=== PATIENT | female | born 1950 | race Caucasian/White ===

== ENCOUNTER 2019-10-28 10:01 | Outpatient (CLI) | payer MEDICARE, SELFPAY | END 2019-10-28 10:02 | disposition home or self-care (01) | PROVIDERS: PCP Family Medicine; Visit Provider Obstetrics & Gynecology | DX: R10.2 Pelvic and perineal pain (principal) | CPT/HCPCS: 36415; 86850; 86900; 86901 ==

== ENCOUNTER 2019-10-29 00:03 | Outpatient (CLI) | payer MEDICARE, SELFPAY ==
[2019-10-29 17:33] LABS: SARS-CoV-2 RNA PCR Negative
== END 2019-10-29 00:04 | disposition home or self-care (01) ==
LOC: ANHCOVIDDT 00:03
PROVIDERS: Visit Provider Obstetrics & Gynecology
DX: Z01.818 Encounter for other preprocedural examination (principal); Z11.59 Encounter for screening for other viral diseases
CPT/HCPCS: 87635; C9803; U0003

== ENCOUNTER 2019-10-31 00:19 | Day surgery (SDC) | payer MEDICARE, SELFPAY ==
[2019-10-24 15:29] VITALS: BMI 25.7
--- NOTE | 2019-10-29 09:56 | PM.IMHP ---
H&P: HPI History of Present Illness Chief complaint: PELVIC PAIN Narrative: Lydia Sainz is a 68 year old female status post hysterectomy and bilateral sent is admitted for laparoscopy. She has a history pelvic adhesions she has pain discomfort and risks and benefits reviewed. She h Review of Systems Review of Systems: All systems reviewed & are unremarkable except as noted in HPI and below PMFSH Family History Family History Mother Family history of malignant neoplasm Patient's mother is Sibling Family history of malignant neoplasm Patient's sister is Social History Social History Smoking status: Never smoker Alcohol intake: never Meds Home Medications and Allergies Home Medications Medication Instructions Recorded Confirmed Type biotin 2,500 mcg PO DAILY 10/24/19 10/24/19 History levothyroxine 88 mcg PO DAILY 10/24/19 10/24/19 History Allergies Allergy/AdvReac Type Severity Reaction Status Date / Time No Known Allergies Allergy Unverified 10/24/19 15:16 Exam Const: General: no acute distress Eyes: General: appearance normal, both eyes and all related structures Neck: Neck: supple and no JVD Thyroid: thyroid normal Resp: Effort & Inspection: normal respiratory effort Auscultation: clear to auscultation bilaterally Cardio: Rate: regular rate Rhythm: regular rhythm GI: Inspection: non-distended GI Palp: Yes Soft to palpation, No Tenderness to palpation present (GI) and No Guarding due to palpation present (GI) Auscultation: normal bowel sounds : External Female Exam: normal external appearance Speculum Exam - Vagina: normal appearance of the vagina Speculum Exam - Cervix: Cervix absent Bimanual exam- vagina & uterus: normal palpation Bimanual Exam- Adnexa, other: no masses and tender Skin: General skin exam: no rashes or lesions noted Extrem: General: normal to inspection and no edema Psych: Mental Status: mental status grossly normal Affect: normal affect Assessment and Plan Additional Plan impression: Pelvic pain Plan: Diagnostic laparoscopy
[2019-10-31] VITALS (8 sets, daily range): BP systolic 135–169; BP diastolic 54–87; PULSE 52–94; RESP 13–30; TEMP 36.3; O2SAT 91–100
--- NOTE | 2019-10-31 06:21 | WPDHPUPDATE1 ---
History and Physical Update Update Date/Time: 10/31/19 06:21 History and Physical has been reviewed, including an updated exam of the patient. There are NO changes in the patient's condition. Risks, benefits, and alternatives have been discussed and questions answered. Patient agrees to proceed with procedure.
--- NOTE | 2019-10-31 07:57 | P.PNAN_ITS ---
Anes - Initial Pre Proc Eval Procedure: Operation Date: 10/31/19 09:30 Proposed Procedures p Diagnostic Laparoscopy - Vignesh Medrano MD Date/Time: 10/31/19 07:57 Surgeon: Vignesh Medrano MD Pre Op Diagnosis: PELVIC PAIN Patient Data Age: 68 Gender: F Height: 4 ft 10 in Weight: 56.3 kg Last Vital Signs Temp 97.3 F L 10/31/19 07:32 Pulse 63 10/31/19 07:32 Resp 16 10/31/19 07:32 BP 152/73 H 10/31/19 07:32 Pulse Ox 100 10/31/19 07:32 Allergies Allergy/AdvReac Type Severity Reaction Status Date / Time No Known Allergies Allergy Unverified 10/31/19 07:50 Home Medications Medication Instructions Recorded Confirmed Type biotin 2,500 mcg PO DAILY 10/24/19 10/31/19 History levothyroxine 88 mcg PO DAILY 10/24/19 10/31/19 History hydrocodone-acetaminophen [[place]] 1 tablet PO Q4H PRN #20 tablet 10/31/19 Rx Patient hx anesthesia problems: none Family hx anesthesia problems: none [facility] Past Medical History Medical History (Updated 10/31/19 @ 07:57 by Alvaro Vides MD) Hypothyroid Family History Family History Mother Family history of malignant neoplasm Patient's mother is Sibling Family history of malignant neoplasm Patient's sister is Social History Social History Smoking status: Never smoker Alcohol intake: never Anes - Eval Final PreProcedure Day of Procedure 10/31/19 07:57 Patient weight: normal Heart: regular rate and rhythm Lungs: clear to auscultation Airway: Mallampati scale class II Neurological: alert and oriented Last oral intake: >/= 8 hours ASA classification: II Emergent: no Anesthetic plan: proceed Anesthesia type and monitoring: general ETT and standard monitoring Informed Consent: The patient's anesthetic plan and its attendant risks and benefits were discussed with the patient/family/POA. Questions were solicited and answers provided to the satisfaction of the patient/family/POA.
[2019-10-31] MEDS: LACTATED RINGERS 1,000 ML 30 ML IV CONT ×2 (08:05→09:59)
--- NOTE | 2019-10-31 08:50 | SUR.PREOP ---
0850- INFORMED PT HAS BEEN TRANSPORTED TO OR.
--- NOTE | 2019-10-31 09:21 | P.OP_ITS ---
Procedure Note - Detailed Date of procedure: 10/31/19 Pre-op diagnosis: PELVIC PAIN Surgeon: Vignesh Medrano MD for postop diagnosis: Pelvic plain/ pelvic adhesions Anesthesia: General endotracheal Procedure: Laparoscopic lysis of adhesions Complications: Findings: Absent uterus ovaries and tubes. Multiple areas of adhesions. Description procedure: The patient was prepped and draped in the normal sterile fashion placed in the dorsal lithotomy position. Under excellent general endotracheal anesthesia weighted speculum placed in posterior fornix of vagina. Sponge stick was placed in the vagina drained of clear urine. The weighted speculum was removed and gloves were changed. A supraumbilical incision was made and the Veress needle passed in the abdomen. Abdomen was filled with CO2 gas [id number]. The 5mm trocar was advanced under direct visualization assuring no injury. Patient was placed in Trendelenburg and a left lateral quadrant incision was made due to the adhesions which were anterior to the abdominal wall. The 5mm trocar was advanced under direct visualization assuring no injury. Using sharp dissection the omentum which was attached to the anterior abdominal wall was serially cauterized cut and 9 relieved from the adhesions to the anterior and abdominal wall. Multiple ad hesions were seen on the left with a: Attached to the left lateral sidewall. Sharp dissection was used until it was cleared irrigation was undertaken until clear and photo documentation was undertaken. Interceed was placed over the raw surface areas to attempt to avoid future adhesions. Blood loss was estimated at5cc lower site removed. The gas removed from the abdomen the upper site removed. The incisions closed with 4 O Monocryl and glue. The patient was awakened and went to recovery in satisfactory condition. All sponge, needle, instrument counts were correct. There were no immediate complications
== END 2019-10-31 11:28 | disposition home or self-care (01) ==
PROVIDERS: PCP Family Medicine; Visit Provider Obstetrics & Gynecology
PROC: (CPT 49320; principal; 2019-10-31 09:30)
DX: R10.2 Pelvic and perineal pain (principal); N73.6 Female pelvic peritoneal adhesions (postinfective)
CPT/HCPCS: 58660; 36415; 86850; 86900; 86901; 87635; A9270; C9803; J0131; J1100; J2250; J2405; J2704; J2710; J3010; J7030; J7120; U0003

== ENCOUNTER 2022-05-01 12:16 | Outpatient (CLI) | payer MEDICARE, SELFPAY ==
--- NOTE | ~2022-05-01 | US_ITS ---
Pelvic ultrasound. Clinical History: Pelvic pain, history of hysterectomy and bilateral oophorectomy Technique: Realtime transvaginal scanning of the pelvis was performed. Findings: The uterus and ovaries are absent, compatible prior resection. No mass lesion or fluid maura ection seen in the pelvis. No free fluid identified. Impression: Status post hysterectomy and bilateral oophorectomy. No mass lesion, fluid collection, or free fluid seen in the pelvis. Reviewed, dictated and finalized at location [] [facility] [employer] Impression: Status post hysterectomy and bilateral oophorectomy. No mass lesion, fluid maura ection, or free fluid seen in the pelvis.
== END 2022-05-01 12:17 | disposition home or self-care (01) ==
PROVIDERS: PCP Family Medicine; Visit Provider Obstetrics & Gynecology
DX: R10.2 Pelvic and perineal pain (principal); Z90.710 Acquired absence of both cervix and uterus; Z90.722 Acquired absence of ovaries, bilateral
CPT/HCPCS: 76830; 76856

== ENCOUNTER 2022-05-09 08:40 | Outpatient (CLI) | payer MEDICARE, SELFPAY | END 2022-05-09 08:41 | disposition home or self-care (01) | PROVIDERS: PCP Family Medicine; Visit Provider Obstetrics & Gynecology | DX: R10.2 Pelvic and perineal pain (principal) | CPT/HCPCS: 36415; 86850; 86900; 86901 ==

== ENCOUNTER 2022-05-19 01:21 | Day surgery (SDC) | payer MEDICARE, SELFPAY ==
[2022-05-04 10:40] VITALS: BMI 24.2
--- NOTE | 2022-05-04 10:45 | PC.NURSE ---
Addendum entered by Kaitlyn Dobbs RN 05/04/22 10:58: MASK REQUIRED Original Note: Report to the Outpatient Waiting Room, entrance under the green pavilion located off [facility], at time 6:00 on date 05/19/22. Planned Procedure Time: 7:30. Time changes happen often and if your time is changed the preop area will call you the afternoon before. - You and your visitor will be asked to self-screen and do not enter if you have any COVID symptoms. - Only one visitor is requested with a max of two and NO children visitors are allowed at this time. - The patient visitor may be requested to leave or wait in car when not with patient due to distancing restrictions. - A mask is optional within the hospital. Patients may have clear liquids (water, carbonated beverages, clear teas, apple juice) until 3 hours prior to surgery (4:30) with a maximum of 20 ounces. - No food from midnight until time of surgery Take the following medications with a SIP of water the morning of surgery: LEVOTHYROXINE Medications to discontinue per physician: BIOTIN Date to take last dose: 05/15/22 Please no make-up, nail indian, hairspray, perfume, deodorant, or body powder the day of surgery. No jewelry (including any body piercings) or valuables the day of surgery, leave them at home. Please take a shower or bath the night before, or the morning of, surgery with an antibacterial soap. Wear comfortable, loose fitting clothing. - Jewelry must be removed prior to entering the operating room. Rings and piercings that are not removed may be cut off. - The hospital will not accept responsibility for valuables. - Please leave all valuables, including medications, at home the day of surgery. If you are going home after surgery, a licensed log truck driver must drive you home. - NO public transportation without another adult if you receive anesthesia. - We recommend that an adult stay with you for 24 hours following discharge. - We also recommend that you do not drive, make important decision, drink alcoholic beverages, or take any drugs that were not prescribed by your health care provider for at least 24 hours after your discharge time. Follow any additional instructions given to you from your surgeon. If you or anyone in your household have experienced Covid symptoms in the past week, please notify your surgeon or the nurse liaison at the phone number below for possible testing. Telephone instructions given to PT - ANGELIQUE KOWALSKI and asked if any additional questions and then verbalized understanding. Patient advised to call surgeon office or pre surgery nurse liaison [phone] if any additional questions.
--- NOTE | 2022-05-18 07:45 | PM.IMHP ---
H&P: HPI History of Present Illness Date/Time: 05/18/22 07:45 Chief Complaint: pelvic pain Narrative: 71-year-old female with pelvic pain dyspareunia she has a history of hysterectomy and BSO with recurrent adhesions. Ultrasound was negative. She continues to have pain and discomfort in laparoscopic lysis of adhesions be undertaken. She understands this may worsen things. Risks and benefits reviewed including not exclusive of , aspiration pneumonia, bleeding, transfusion, perforation injury to bowel, bladder, ureters, or other internal organs the need for open laparotomy. She received the ACOG handout entitled laparoscopy. She had all questions answered. She asked to proceed PMFSH Past Medical History Medical History Hypothyroid Family History Family History Mother Family history of malignant neoplasm Patient's mother is Sibling Family history of malignant neoplasm Patient's sister is Social History Social History Smoking status: Never smoker Alcohol intake: never Substance use: never Substance use type: does not use Spiritual care concerns: No Meds Home Medications and Allergies Home Medications Medication Instructions Recorded Confirmed Type biotin 2,500 mcg capsule 2,500 mcg PO DAILY 10/24/19 05/04/22 History levothyroxine 88 mcg tablet 88 mcg PO DAILY 10/24/19 05/04/22 History Allergies Allergy/AdvReac Type Severity Reaction Status Date / Time No Known Allergies Allergy Unverified 10/31/19 07:50 Exam Const: General: cooperative, healthy appearing and comfortable Nutritional Appearance: average body habitus Orientation/consciousness: oriented to person, oriented to place and oriented to time HENMT: Head: normal to inspection Resp: Effort & Inspection: normal respiratory effort Cardio: Rate: regular rate Rhythm: regular rhythm Heart sounds: S1 normal heart sound present and S2 normal heart sound present GI: Inspection: normal to inspection : External Female Exam: normal external appearance Speculum Exam - Vagina: normal appearance of the vagina Speculum Exam - Cervix: Cervix absent Bimanual exam- vagina & uterus: uterus absent Bimanual Exam- Adnexa, other: tender bilaterally Assessment and Plan Assessment and plan (1) Pelvic pain: Code(s): R10.2 - Pelvic and perineal pain Status: Acute Plan laparoscopy with expected lysis of adhesions
--- NOTE | 2022-05-18 13:23 | P.PNAN_ITS ---
Anes - Initial Pre Proc Eval Procedure: Operation Date: 05/19/22 07:30 Proposed Procedures p Laparoscopic Excision of Pelvic Adhesions - Vignesh Gipson MD Date/Time: 05/18/22 13:23 Surgeon: Vignesh Gipson MD Pre Op Diagnosis: pelvic pain Patient Data Age: 71 Gender: F Height: 1.47 m Weight: 52.62 kg Allergies Allergy/AdvReac Type Severity Reaction Status Date / Time No Known Allergies Allergy Unverified 05/19/22 06:15 Home Medications Medication Instructions Recorded Confirmed Type biotin 2,500 mcg capsule 2,500 mcg PO DAILY 10/24/19 05/19/22 History levothyroxine 88 mcg tablet 88 mcg PO DAILY 10/24/19 05/19/22 History hydrocodone 5 mg-acetaminophen 325 1 tablet PO Q4H PRN pain #20 tabs 05/19/22 Rx mg tablet Patient hx anesthesia problems: none Family hx anesthesia problems: none Results Review: All pre-operative results and documents have been reviewed as part of the pre- operative evaluation. [facility] Past Medical History Medical History Hypothyroid Family History Family History Mother Family history of malignant neoplasm Patient's mother is Sibling Family history of malignant neoplasm Patient's sister is Social History Social History Smoking status: Never smoker Alcohol intake: never Substance use: never Substance use type: does not use Living arrangements: with family Spiritual care concerns: No Anes - Eval Final PreProcedure Day of Procedure 05/18/22 13:23 Patient weight: normal Heart: regular rate and rhythm Lungs: clear to auscultation Airway: Mallampati scale class II Neurological: alert and oriented Last oral intake: >/= 8 hours ASA classification: II Emergent: no Anesthetic plan: proceed Anesthesia type and monitoring: general ETT and standard monitoring Results Review: All pre-operative results and documents have been reviewed as part of the pre- operative evaluation. Informed Consent: The patient's anesthetic plan and its attendant risks and benefits were discussed with the patient/family/POA. Questions were solicited and answers provided to the satisfaction of the patient/family/POA.
[2022-05-19] VITALS (8 sets, daily range): BP systolic 135–168; BP diastolic 56–79; PULSE 54–86; RESP 12–22; TEMP 36.3–36.7; O2SAT 95–100
[2022-05-19] MEDS: ACETAMINOPHEN 500 MG TABLET 1000 MG PO (06:15)
[2022-05-19] MEDS: LACTATED RINGERS 1,000 ML 30 ML IV CONT ×2 (06:37→08:20)
[2022-05-19] MEDS: KETOROLAC 15 MG/ML VIAL (*BKC) IV PUSH (06:39)
--- NOTE | 2022-05-19 06:51 | WPDHPUPDATE1 ---
History and Physical Update Update Date/Time: 05/19/22 06:51 History and Physical has been reviewed, including an updated exam of the patient. There are NO changes in the patient's condition. Risks, benefits, and alternatives have been discussed and questions answered. Patient agrees to proceed with procedure.
--- NOTE | 2022-05-19 08:07 | W.PM.PROC2 ---
Procedure Note - Detailed Date of Procedure 05/19/22 Pre-op Diagnosis pelvic pain Post-op Diagnosis Other (Pelvic adhesions) Procedure Performed laparoscopic lysis adhesions Surgeon Vignesh Gipson MD Anesthesia General Indications size 71-year-old female numerous previous surgical suspected adhesions severe pelvic pain Findings absent uterus ovaries tubes multiple adhesions to the anterior abdominal as well as the vaginal cuff. Colon was adherent to the. Uterus ovaries and tubes were surgically absent Description of Procedure patient was prepped draped in the normal sterile fashion placed in the dorsal lithotomy position. Under excellent general trach anesthesia sponge stick was placed in clear urine. Sponge stick was placed in the vagina and the gloves were changed. A supraumbilical incision made the Veress needle passed in the abdomen. Abdomen filled with CO2 gas 15 was mercury. The 5mm trocar advanced under direct visualization assuring no injury. Patient placed in Trendelenburg and a left lower quadrant incision made the 5mm trocar advanced under direct visualization assuring no injury. Multiple adhesions were seen anteriorly and these were sharply dissected using Endo Rlel and electrocautery. Irrigation was undertaken to clear. The colon was markedly adherent to the vaginal cuff as well as the left lateral sidewall sharp dissection was undertaken with Endo Rell and this was cleared vigorous irrigation undertaken to allow was clear. No other abnormalities were seen the lower site removed. Gas removed from the abdomen the upper site removed and incisions closed with 4 Monocryl and glue. Instruments removed from the vagina and the patient went to recovery in satisfactory condition. All sponge, needle, instrument counts were correct. There were no immediate complications Estimated Blood Loss 5 Drains No Packing No Pathology None sent Complications No immediate complications Condition Stable Disposition PACU
== END 2022-05-19 10:00 | disposition home or self-care (01) ==
PROVIDERS: PCP Family Medicine; Visit Provider Obstetrics & Gynecology
PROC: (CPT 49320; principal; 2022-05-19 07:30)
DX: N73.6 Female pelvic peritoneal adhesions (postinfective) (principal); R10.2 Pelvic and perineal pain; N94.10 Unspecified dyspareunia; E03.9 Hypothyroidism, unspecified
CPT/HCPCS: 44180; A9270; J1100; J1885; J2250; J2704; J2710; J3010; J7030; J7120

== ENCOUNTER 2023-11-14 08:01 | Outpatient (CLI) | payer MEDICARE, SELFPAY ==
--- NOTE | 2023-11-14 08:30 | ECG_ITS ---
Test Date: 2023-11-14 08:17:12 Measurements Intervals [place] Rate: 62 P: 4 CA: 194 QRS: 74 QRSD: 73 T: 10 QT: 380 QTc: 387 Interpretive Statements SINUS RHYTHM No previous ECG available for comparison Electronically Signed On 11-14-2023 11:54:23 CDT by Betsy Mejias M.D.
== END 2023-11-14 08:02 | disposition home or self-care (01) ==
LOC: ANHSURGERY 08:07
PROVIDERS: PCP Family Medicine; Visit Provider Obstetrics & Gynecology
DX: R10.2 Pelvic and perineal pain (principal); Z01.818 Encounter for other preprocedural examination; E78.00 Pure hypercholesterolemia, unspecified
CPT/HCPCS: 36415; 86850; 86900; 86901; 93005

== ENCOUNTER 2023-11-16 00:23 | Day surgery (SDC) | payer MEDICARE, SELFPAY ==
[2023-11-12 14:20] VITALS: BMI 23.9
--- NOTE | 2023-11-12 14:50 | PC.NURSE ---
Addendum entered by Yuki Naranjo RN 11/12/23 14:53: PT TO HOLD ASPIRIN PER DR CRUZ, SHE RELAYS UNDERSTANDING. Original Note: Report to the Outpatient Waiting Room, entrance under the green pavilion located off [facility], at time __6:30AM on date __11/16/23 . Planned Procedure Time: __8:30AM . Time changes happen often and if your time is changed the preop area will call you the afternoon before. - You and your visitor will be asked to self-screen and do not enter if you have any COVID symptoms. - A mask is optional within the hospital at this time. Patients may have clear liquids (water, carbonated beverages, clear teas, apple juice) until 3 hours prior to surgery with a maximum of 20 ounces. - No food from midnight until time of surgery. Take the following medications with a SIP of water the morning of surgery: __LEVOTHYROXINE DO NOT STOP ANY OF YOUR OTHER PRESCRIPTION MEDICATIONS PRIOR TO SURGERY ?EXCEPT THE FOLLOWING Medications to discontinue per physician ____HOLD ALL VITAMINS/SUPPLEMENTS 3 DAYS PRE-OP PER ANESTHESIA Date to take last dose___11/12/23 Please no make-up, nail luxembourgish, hairspray, perfume, deodorant, or body powder the day of surgery. No jewelry (including any body piercings) or valuables the day of surgery, leave them at home. Please take a shower or bath the night before, or the morning of, surgery with an antibacterial soap. Wear comfortable, loose fitting clothing. - Jewelry must be removed prior to entering the operating room. Rings and piercings that are not removed may be cut off. - The hospital will not accept responsibility for valuables. - Please leave all valuables, including medications, at home the day of surgery. If you are going home after surgery, a licensed truck driver's offsider must drive you home. - NO public transportation without another adult if you receive anesthesia. - We recommend that an adult stay with you for 24 hours following discharge. - We also recommend that you do not drive, make important decision, drink alcoholic beverages, or take any drugs that were not prescribed by your health care provider for at least 24 hours after your discharge time. Follow any additional instructions given to you from your surgeon. If you or anyone in your household have experienced Covid symptoms in the past week, please notify your surgeon or the nurse liaison at the phone number below for possible testing. Telephone instructions given to ___PATIENT and asked if any additional questions and then verbalized understanding. Patient advised to call surgeon office or pre surgery nurse liaison [phone] if any additional questions.
--- NOTE | 2023-11-15 06:39 | PM.IMHP ---
H&P: HPI History of Present Illness Date/Time: 11/15/23 06:39 Chief Complaint: pelvic pain Narrative: 73-year-old female with a history of severe pelvic adhesions admitted for laparoscopy and lysis of adhesions. Ultrasound findings were negative. She has had he adhesions were for in the past and benefited from lysis of adhesions. Risks and benefits of this procedure reviewed including not exclusive of , aspiration pneumonia, bleeding, transfusion, perforation injury to bowel, bladder, ureters, or other internal organs with the need for open laparotomy. She received the ACOG handout entitled laparoscopy. She had all questions answered and asked to proceed PMFSH Past Medical History Medical History Hypothyroid Family History Family History Mother Family history of malignant neoplasm Patient's mother is Sibling Family history of malignant neoplasm Patient's sister is Social History Social History Smoking status: Never smoker Alcohol intake: never Substance use: never Substance use type: does not use Living arrangements: with family Additional living arrangements comments: HUSB Gender identity (if verbalized by the patient): Female Sexual Orientation (if Verbalized by the Patient): Straight or Heterosexual Spiritual care concerns: No Meds Home Medications and Allergies Home Medications Medication Instructions Recorded Confirmed Type biotin 2,500 mcg capsule 2,500 mcg PO DAILY 10/24/19 11/12/23 History levothyroxine 88 mcg tablet 88 mcg PO QAM 10/24/19 11/12/23 History aspirin 81 mg tablet 81 mg PO DAILY 11/12/23 11/12/23 History atorvastatin 40 mg tablet 40 mg PO QAM 11/12/23 11/12/23 History Allergies Allergy/AdvReac Type Severity Reaction Status Date / Time No Known Allergies Allergy Unverified 11/12/23 14:15 Exam Const: General: cooperative, healthy appearing, comfortable and thin Orientation/consciousness: oriented to person, oriented to place and oriented to time HENMT: Head: normal to inspection Resp: Effort & Inspection: normal respiratory effort Cardio: Rate: regular rate Rhythm: regular rhythm Heart sounds: S1 normal heart sound present and S2 normal heart sound present GI: Inspection: normal to inspection : External Female Exam: normal external appearance Speculum Exam - Vagina: normal appearance of the vagina Speculum Exam - Cervix: Cervix absent Bimanual exam- vagina & uterus: uterus absent Bimanual Exam- Adnexa, other: tender bilaterally Assessment and Plan Assessment and plan (1) Pelvic pain: Code(s): R10.2 - Pelvic and perineal pain Status: Acute Assessment and Plan: laparoscopy with lysis of adhesions
--- NOTE | 2023-11-16 04:37 | WPDHPUPDATE1 ---
History and Physical Update Update Date/Time: 11/16/23 04:37 History and Physical has been reviewed, including an updated exam of the patient. There are NO changes in the patient's condition. Risks, benefits, and alternatives have been discussed and questions answered. Patient agrees to proceed with procedure.
[2023-11-16 06:20] VITALS: BP 146/72; PULSE 59; RESP 16; TEMP 36.8; O2SAT 97
[2023-11-16] MEDS: KETOROLAC 15 MG/ML VIAL (*BKC) IV PUSH (07:30)
[2023-11-16 07:54] VITALS: BMI 24.0
--- NOTE | 2023-11-16 08:04 | WPDANESEPPF ---
Anes - Initial Pre Proc Eval Procedure: Operation Date: 11/16/23 08:30 Proposed Procedures p Laparoscopy with Lysis of Adhesions - Vignesh Gipson MD Date/Time: 11/16/23 08:04 Surgeon: Vignesh Gipson MD Pre Op Diagnosis: Pelvic Pain, Pelvic Adhesions Patient Data Age: 73 Gender: F Height: 1.47 m Weight: 52.2 kg Last Vital Signs Temp 36.8 C 11/16/23 06:20 Pulse 59 L 11/16/23 06:20 Resp 16 11/16/23 06:20 BP 146/72 H 11/16/23 06:20 Pulse Ox 97 11/16/23 06:20 O2 Del Method Room Air 11/16/23 06:20 Allergies Allergy/AdvReac Type Severity Reaction Status Date / Time No Known Allergies Allergy Verified 11/16/23 07:52 Home Medications Medication Instructions Recorded Confirmed Type biotin 2,500 mcg capsule 2,500 mcg PO DAILY 10/24/19 11/12/23 History levothyroxine 88 mcg tablet 88 mcg PO QAM 10/24/19 11/12/23 History aspirin 81 mg tablet 81 mg PO DAILY 11/12/23 11/12/23 History atorvastatin 40 mg tablet 40 mg PO QAM 11/12/23 11/12/23 History hydrocodone 5 mg-acetaminophen 325 1 tablet PO Q4H PRN pain #20 tabs 11/16/23 Rx mg tablet Patient hx anesthesia problems: none Family hx anesthesia problems: none Results Review: All pre-operative results and documents have been reviewed as part of the pre-operative evaluation. [facility] Past Medical History Medical History Hypothyroid Family History Family History Mother Family history of malignant neoplasm Patient's mother is Sibling Family history of malignant neoplasm Patient's sister is Social History Social History Smoking status: Never smoker Alcohol intake: never Substance use: never Substance use type: does not use Living arrangements: with family Additional living arrangements comments: HUSB Gender identity (if verbalized by the patient): Female Sexual Orientation (if Verbalized by the Patient): Straight or Heterosexual Spiritual care concerns: No Anes - Eval Final PreProcedure Day of Procedure 11/16/23 08:04 Patient weight: normal Heart: regular rate and rhythm Lungs: clear to auscultation Airway: Mallampati scale class II Neurological: alert and oriented Last oral intake: >/= 8 hours ASA classification: III Emergent: no Anesthetic plan: proceed Anesthesia type and monitoring: general ETT and standard monitoring Results Review: All pre-operative results and documents have been reviewed as part of the pre-operative evaluation. Informed Consent: The patient's anesthetic plan and its attendant risks and benefits were discussed with the patient/family/POA. Questions were solicited and answers provided to the satisfaction of the patient/family/POA.
[2023-11-16 09:05] VITALS: BP 111/53; PULSE 52; RESP 12; TEMP 36.5; O2SAT 100
[2023-11-16] MEDS: LACTATED RINGERS 1,000 ML 30 ML IV CONT ×2 (09:05)
--- NOTE | 2023-11-16 09:05 | W.PM.PROC2 ---
Procedure Note - Detailed Date of Procedure 11/16/23 Pre-op Diagnosis Pelvic Pain, Pelvic Adhesions Post-op Diagnosis Same Procedure Performed Laparoscopic lysis of adhesions Surgeon Vignesh Gipson MD Anesthesia General Indications this is a 73-year-old female with a history of adhesions Findings as uterus ovaries tubes. Fair amount of adhesions from colon to the left lateral were also adhesions to the Description of Procedure patient was prepped draped in normal sterile fashion placed in dorsal lithotomy position. Under excellent general trach anesthesia a sponge stick was placed in vagina bladder drained clear urine. Weighted speculum was gloves were changed. A supraumbilical incision made the Veress needle passed in the abdomen. Abdomen filled with CO2 gas to 15mm. The 5mm trocar advanced under direct visualization assuring no injury. Patient placed in Trendelenburg and a suprapubic incision made. The 5mm trocar advanced under direct visualization multiple adhesions were seen and using scissors and sharp dissection these were sharply dissected cleared irrigation was undertaken until clear and the colon was noted be none adherent to the lateral sidewall after the finished with this the right side had a small amount of adhesions these were sharply dissected away the sponge stick was placed vagina was completely mobile irrigation was undertaken to clear the lower sites. The gas abdomen. Upper sized incisions closed with 4 patient was awakened went to recovery in satisfactory condition. All sponge, needle, instrument counts were correct. There were immediate complications Estimated Blood Loss 5 Drains No Packing No Pathology None sent Complications No immediate complications Condition Stable Disposition PACU
[2023-11-16 09:15] VITALS: BP 109/55; PULSE 52; RESP 12; O2SAT 100
[2023-11-16 09:30] VITALS: BP 155/81; PULSE 71; RESP 16; O2SAT 100
[2023-11-16 09:46] VITALS: BP 177/66; PULSE 58; RESP 16
[2023-11-16 10:15] VITALS: BP 163/66; PULSE 51; RESP 16
== END 2023-11-16 10:34 | disposition home or self-care (01) ==
PROVIDERS: PCP Family Medicine; Visit Provider Obstetrics & Gynecology
PROC: (CPT 49320; principal; 2023-11-16 08:30)
DX: N73.6 Female pelvic peritoneal adhesions (postinfective) (principal); R10.2 Pelvic and perineal pain; E03.9 Hypothyroidism, unspecified
CPT/HCPCS: 58660; 36415; 86850; 86900; 86901; 93005; J1100; J1170; J1885; J2405; J2704; J7120

== ENCOUNTER 2025-01-13 08:49 | Outpatient (CLI) | payer MEDICARE, SELFPAY ==
--- OUTSIDE RECORDS SUMMARY | 2025-01-13 09:03 | XMS_ITS | Patient Health Record ---
Author Organization [facility] Address [address] [place], [place] [id number] Care Team Providers Care Survey Coordinator Name Role Phone NORA Magana Unavailable Martin Martinez Unavailable Unavailable Reason For Referral No Information Plan Of Treatment No Information Insurance Providers Payer Name Payer Address Payer Phone Subscriber Number Group Number Insured Name Patient Relationship to Insured Coverage Start Date Coverage End Date Aetna [address] [place] [phone] [id number] MYRNA KOWALSKI Self - patient is the insured
--- OUTSIDE RECORDS SUMMARY | 2025-01-13 09:03 | XMS_ITS | Clinical Summary ---
Author Organization [facility] Address [address] [place] [id number] Care Team Providers Care Associate Professor Of Biostatistics Name Role Phone Martin Martinez MD Primary Care Provider [phone] Allergies No known active allergies Medications No known medications Active Problems Problem Noted Date Diagnosed Date Trigger finger of left thumb 05/09/2024 Left hand pain 05/09/2024 Adhesive capsulitis of shoulder 10/07/2012 Medial epicondylitis of elbow 10/07/2012 Arthralgia of shoulder 07/19/2010 Surgical History Surgery Date Site/Laterality Comments OTHER SURGICAL HISTORY many, can't remember dates Medical History Medical History Date Comments Thyroid disease Family History Medical History Relation Name Comments Cancer Other sister 2 Cancer Sister Relation Name Status Comments Other sister 2 Alive Sister Social History Tobacco Use Types Packs/Day Years Used Date Smoking Tobacco: Never Smokeless Tobacco: Never Alcohol Use Standard Drinks/Week Comments Never 0 (1 standard drink = 0.6 oz pur e alcohol) AUDIT-C Answer Date Recorded Frequency of Alcohol Consumption Never 06/05/2019 Average Number of Drinks Not on file 020 Frequency of Binge Drinking Not on file 05/21 Comments Unknown Sex and Gender Information Value Date Recorded Sex Assigned at Not on file Legal Sex Female 3:14 AM TRIAL JUSTICE Gender Identity Not on file Sexual Orientation Not on file Occupation Industry Job Start Date Job End Date retired Not on file Not on file Not on file Obstetrics History Last Filed Vital Signs Vital Sign Reading Time Taken Comments Blood Pressure - - Pulse - - Temperature - - Respiratory Rate - - Oxygen Saturation - - Inhaled Oxygen Concentration - - Weight 53.1 kg (117 lb) 06/05/2019 3:21 PM TRIAL JUSTICE Height 147.3 cm (4' 10) 06/05/2019 3:21 PM TRIAL JUSTICE Body Mass Index 24.45 06/05/2019 3:21 PM TRIAL JUSTICE Plan of Treatment Health Maintenance Due Date Last Done Comments Colon Cancer Screening-Colonoscopy 1950 Depression Screening 1952 Fall Risk Assessment 1950 Hepatitis C Screening 1950 Osteoporosis Screening-Bone Density Scan 1950 DTaP/Tdap/Td Vaccine (1 - Tdap) 11/08/1963 Hepatitis B Screening 1970 Pneumococcal vaccine 65+ (1 of 1 - PCV) 2002 Zoster Vaccine (1 of 2) 2002 Breast Cancer Screening-Mammogram 09/23/2013 013 Well Visit 65+ 2017 Influenza Vaccine (#1) 2025 Insurance [facility] MEDICARE ADVANTAGE [facility] MEDICARE [facility] MEDICARE Address: [address] [place] [address] UHC MEDICARE ADVANTAGE [facility] MEDICARE Care Teams Associate Professor Of Biostatistics Relationship Specialty Start Date End Date Martin Martinez MD [address] [address] PCP - General Family Medicine 05/15/19
--- NOTE | 2025-01-13 09:06 | ECG_ITS ---
Test Date: 2025-01-13 09:15:27 Measurements Intervals [place] Rate: 57 P: 41 AR: 179 QRS: -23 QRSD: 78 T: 45 QT: 411 QTc: 403 Interpretive Statements SINUS BRADYCARDIA POSSIBLE ANTERIOR MYOCARDIAL INFARCTION CONSIDER INFERIOR INFARCT, AGE INDETERMINATE BASELINE ARTIFACT- I, II, III, AVR, AVL, AVF, V1-V6 ABNORMAL ECG Compared to ECG 11/14/2023 08:17:12 NO SIGNIFICANT CHANGE Electronically Signed On 01-13-2025 09:20:02 CDT by Ministerio Hoff D.O.
== END 2025-01-13 08:50 | disposition home or self-care (01) ==
PROVIDERS: PCP Family Medicine; Visit Provider Obstetrics & Gynecology
DX: Z01.818 Encounter for other preprocedural examination (principal); E78.5 Hyperlipidemia, unspecified; R10.2 Pelvic and perineal pain; N80.9 Endometriosis, unspecified
CPT/HCPCS: 36415; 86850; 86900; 86901; 93005

== ENCOUNTER 2025-01-23 00:28 | Day surgery (SDC) | payer MEDICARE, SELFPAY ==
[2025-01-12 15:03] VITALS: BMI 23.9
--- NOTE | 2025-01-12 15:13 | PC.NURSE ---
Report to the Outpatient Waiting Room, entrance under the green pavilion located off [facility], at time _0730am on date __01/23/25 . Planned Procedure Time: __0930am .? Time changes happen often and if your time is changed the preop area will call you the afternoon before. - You and your visitor will be asked to self-screen and do not enter if you have any COVID symptoms. Please call surgeon if you need to reschedule. - A mask is optional within the hospital at this time. Patients may have clear liquids (water, carbonated beverages, clear teas, apple juice) until 3 hours prior to surgery with a maximum of 20 ounces. - No food from midnight until time of surgery and no smoking, or chewing tobacco (or any form of nicotine). No chewing gum, candy or mints.( 0630am) Take only the following medications with a SIP of water on the morning of surgery: Levothyroxine DO NOT STOP ANY OF YOUR OTHER PRESCRIPTION MEDICATIONS PRIOR TO SURGERY EXCEPT THE FOLLOWING Hold all vitamins and supplements for 3 days per anesthesiologist. Date of Last dose is 01/19/25 Medications to discontinue per physician HOLD Baby Aspirin x [address] Alonso Gipson Date to take last dose____01/19/25 Please no make-up, nail palauan, hairspray, perfume, deodorant, or body powder the day of surgery.? No jewelry (including any body piercings) or valuables the day of surgery, leave them at home.? Please take a shower or bath the night before, or the morning of, surgery with an antibacterial soap.? Wear comfortable, loose fitting clothing.? - Jewelry must be removed prior to entering the operating room.? Rings and piercings that are not removed may be cut off. - The hospital will not accept responsibility for valuables.? - Please leave all valuables, including medications, at home the day of surgery. If you are going home after surgery, a licensed chuck wagon driver must drive you home.? - NO public transportation without another adult if you receive anesthesia. - We recommend that an adult stay with you for 24 hours following discharge. - We also recommend that you do not drive, make important decision, drink alcoholic beverages, or take any drugs that were not prescribed by your health care provider for at least 24 hours after your discharge time. Follow any additional instructions given to you from your surgeon. Telephone instructions given to __Patient and asked if any additional questions and then verbalized understanding. Patient advised to call surgeon office or pre surgery nurse liaison [phone] if any additional questions.
--- NOTE | 2025-01-21 12:47 | PM.IMHP ---
H&P: HPI History of Present Illness Date/Time: 01/21/25 12:47 Chief Complaint: Abdominal pain status post hysterectomy bilateral salpingo-oophorectomy Narrative: This is a pleasant 74-year-old laparoscopic lysis of adhesions. She has no history adhesions sent severe pelvic pain. She has imaging with negative findings as tried pelvic floor therapy she continues have severe pelvic pain discomfort risks and benefits reviewed including not exclusive of aspiration pneumonia bleeding, transfusion, perforation injury to bowel, bladder, ureters, or other internal organs with need for open laparotomy. She received the [facility] handout entitled laparoscopy. She had all questions answered asked to proceed Review of Systems Review of Systems: All systems reviewed & are unremarkable except as noted in HPI and below PMFSH Past Medical History Medical History Hypothyroid Family History Family History Mother Family history of malignant neoplasm Patient's mother is Sibling Family history of malignant neoplasm Patient's sister is Social History Social History Smoking status: Never smoker Second hand tobacco smoke exposure: No Alcohol intake: never Substance use: never Substance use type: does not use Living arrangements: with family Additional living arrangements comments: Gender identity (if verbalized by the patient): Female Sexual Orientation (if Verbalized by the Patient): Straight or Heterosexual Spiritual care concerns: No Meds Home Medications and Allergies Home Medications ?Medication ?Instructions ?Recorded ?Confirmed ?Type biotin 2,500 mcg capsule 2,500 mcg PO DAILY 10/24/19 01/12/25 History levothyroxine 88 mcg tablet 88 mcg PO QAM 10/24/19 01/12/25 History aspirin 81 mg tablet 81 mg PO DAILY 11/12/23 01/12/25 History atorvastatin 40 mg tablet 40 mg PO QAM 11/12/23 01/12/25 History vitamin E 268 mg (400 unit) capsule 268 mg PO DAILY 01/12/25 01/12/25 History Allergies Allergy/AdvReac Type Severity Reaction Status Date / Time No Known Allergies Allergy Verified 01/12/25 14:59 Exam Const: General: cooperative, healthy appearing and comfortable Nutritional Appearance: average body habitus Orientation/consciousness: oriented to person, oriented to place and oriented to time HENMT: Head: normal to inspection Resp: Effort & Inspection: normal respiratory effort Cardio: Rate: regular rate Rhythm: regular rhythm Heart sounds: S1 normal heart sound present and S2 normal heart sound present GI: Inspection: normal to inspection : External Female Exam: normal external appearance Speculum Exam - Vagina: normal appearance of the vagina Speculum Exam - Cervix: Cervix absent Bimanual exam- vagina & uterus: uterus absent Bimanual Exam- Adnexa, other: tender bilaterally and cul-de-sac tenderness Assessment and Plan Assessment and plan (1) Pelvic pain: Code(s): R10.2 - Pelvic and perineal pain Status: Acute Plan Proceed with diagnostic laparoscopy
[2025-01-23] VITALS (10 sets, daily range): BP systolic 152–186; BP diastolic 60–92; PULSE 50–75; RESP 14–20; TEMP 36.2–36.4; O2SAT 97–100
--- OUTSIDE RECORDS SUMMARY | 2025-01-23 00:31 | XMS_ITS | Clinical Summary ---
Author Organization [facility] Address [address] [place] [address] Care Team Providers Care Gun Welder Name Role Phone Martin Martinez MD Primary Care Provider [phone] Allergies No known active allergies Medications No [...] on file Legal Sex Female 3:14 AM PARTS CLERK [employer]INTENAN[employer] Gender Identity Not on file Sexual Orientation [...] 53.1 kg (117 lb) 06/05/2019 3:21 PM [employer]S CLERK [employer]TENAN[employer] Height 147.3 cm (4' 10) 06/05/2019 3:21 PM [employer]S CLERK [employer] MAINTENANCE Body Mass Index 24.45 06/05/2019 3:21 PM [employer]S CLERK [employer]INTENAN[employer] Plan of Treatment Health Maintenance Due Date [...] 65+ 2017 Influenza Vaccine (#1) 2025 Insurance [facility] MEDICARE ADVANTAGE [facility] MEDIC[facility] Address: [address] [place] [address] UHC MEDICARE ADVANTAGE [facility] MEDICARE Care Teams Gun Welder Relationship Specialty Start Date End Date Martin Martinez MD [address] [address] PCP - General Family Medicine 05/15/19
--- OUTSIDE RECORDS SUMMARY | 2025-01-23 00:31 | XMS_ITS | Patient Health Record ---
Author Organization [facility] Address [address] [place], [place] [id number] Care Team Providers Care Physical Optics Teacher Name Role Phone NORA Magana Unavailable [phone] Martin Maritnez Unavailable Unavailable Reason For Referral No Information Plan Of Treatment No Information Insurance Providers Payer Name Payer Address Payer Phone Subscriber Number Group Number Insured Name Patient Relationship to Insured Coverage Start Date Coverage End Date Aetna [address] [place] [phone] [id number] MYRNA KOWALSKI Self - patient is the insured
--- NOTE | 2025-01-23 05:25 | WPDHPUPDATE1 ---
History and Physical Update Update Date/Time: 01/23/25 05:25 History and Physical has been reviewed, including an updated exam of the patient. There are NO changes in the patient's condition. Risks, benefits, and alternatives have been discussed and questions answered. Patient agrees to proceed with procedure.
[2025-01-23] MEDS: ACETAMINOPHEN 500 MG TABLET 1000 MG PO (08:03)
[2025-01-23] MEDS: LACTATED RINGERS 1,000 ML 30 ML IV CONT (08:10)
[2025-01-23] MEDS: KETOROLAC 15 MG/ML VIAL (*BKC) IV PUSH (08:15)
--- NOTE | 2025-01-23 09:10 | WPDANESEPPF ---
Anes - Initial Pre Proc Eval Procedure: Operation Date: 01/23/25 09:30 Proposed Procedures p Laparoscopy Lysis of Adhesions - Vignesh Gipson MD Date/Time: 01/23/25 09:10 Surgeon: Vignesh Gipson MD Pre Op Diagnosis: Pelvic adhesions, pain Patient Data Age: 74 Gender: F Height: 1.47 m Weight: 53.55 kg Last Vital Signs Temp 36.4 C L 01/23/25 07:45 Pulse 56 L 01/23/25 07:45 Resp 20 01/23/25 07:45 BP 166/72 H 01/23/25 07:45 Pulse Ox 100 01/23/25 07:45 O2 Del Method Room Air 01/23/25 07:45 Allergies Allergy/AdvReac Type Severity Reaction Status Date / Time No Known Allergies Allergy Verified 01/23/25 07:48 Home Medications ?Medication ?Instructions ?Recorded ?Confirmed ?Type biotin 2,500 mcg capsule 2,500 mcg PO DAILY 10/24/19 01/23/25 History levothyroxine 88 mcg tablet 88 mcg PO QAM 10/24/19 01/23/25 History aspirin 81 mg tablet 81 mg PO DAILY 11/12/23 01/23/25 History atorvastatin 40 mg tablet 40 mg PO QAM 11/12/23 01/23/25 History vitamin E 268 mg (400 unit) capsule 268 mg PO DAILY 01/12/25 01/23/25 History hydrocodone 5 mg-acetaminophen 325 1 tablet PO Q4H PRN pain #20 tabs 01/23/25 Rx mg tablet Patient hx anesthesia problems: none Family hx anesthesia problems: none Results Review: All pre-operative results and documents have been reviewed as part of the pre-operative evaluation. [facility] Past Medical History Medical History Hypothyroid Family History Family History Mother Family history of malignant neoplasm Patient's mother is Sibling Family history of malignant neoplasm Patient's sister is Social History Social History Smoking status: Never smoker Second hand tobacco smoke exposure: No Alcohol intake: never Substance use: never Substance use type: does not use Living arrangements: with family Additional living arrangements comments: HUSB Gender identity (if verbalized by the patient): Female Sexual Orientation (if Verbalized by the Patient): Straight or Heterosexual Spiritual care concerns: No Anes - Eval Final PreProcedure Day of Procedure 01/23/25 09:10 Patient weight: normal Heart: regular rate and rhythm Lungs: clear to auscultation Airway: Mallampati scale class II Neurological: alert and oriented Last oral intake: >/= 8 hours ASA classification: III Emergent: no Anesthetic plan: proceed Anesthesia type and monitoring: general ETT and standard monitoring Results Review: All pre-operative results and documents have been reviewed as part of the pre-operative evaluation. Informed Consent: The patient's anesthetic plan and its attendant risks and benefits were discussed with the patient/family/POA. Questions were solicited and answers provided to the satisfaction of the patient/family/POA.
--- NOTE | 2025-01-23 10:13 | W.PM.PROC2 ---
Procedure Note - Detailed Date of Procedure 01/23/25 Pre-op Diagnosis Pelvic adhesions, pain Post-op Diagnosis Same Procedure Performed Laparoscopic lysis of adhesions Surgeon Vignesh Gipson MD Anesthesia General Indications For 74-year-old female status post hysterectomy with severe pelvic pain Findings Uterus ovaries and tubes were absent. There appears to be a possible diverticular disease there were a fair amount of adhesions to the left lateral sidewall. Description of Procedure Patient was prepped draped in normal sterile fashion placed in dorsal lithotomy position. Under excellent general trach anesthesia a sponge stick was placed in vagina and the bladder drained of clear urine. The weighted speculum was removed the gloves were changed. A supraumbilical incision made Veress needle passed in the abdomen. Abdomen filled with CO2 gas The 5mm trocar advanced it with the Optiview in no injury seen. Patient placed in Trendelenburg and a suprapubic incision made. The 5mm trocar advanced under direct visualization assuring no injury. A right lower quadrant incision made the 5mm trocar advanced under direct visualization assuring no injury. The majority of the adhesive disease was noted on the left. The colon looked consistent with diverticular disease and diverticulum which had were stuck to the ovarian fossa. A few adhesions were sharply dissected away from the vaginal cuff and irrigated clear the colon was then slowly dissected away from the left lateral sidewall until of mostly free. Vigorous irrigation was undertaken to clear and Interceed was placed to help prevent recurrence. Blood loss was estimated 5cc the lower sites removed. The gas removed from the abdomen the upper sites removed the incisions closed with 4-0 Monocryl and glue patient was awakened went recovery in satisfactory condition. All sponge, needle, instrument counts were correct. There were no immediate complications Estimated Blood Loss 5 Drains No Packing No Pathology None sent Complications No immediate complications Condition Stable Disposition PACU
[2025-01-23] MEDS: fentaNYL CITRATE INJ (*CRX) 100 MCG/2 ML VIAL 25 MCG IV PUSH ×2 (10:48→10:52)
== END 2025-01-23 12:10 | disposition home or self-care (01) ==
PROVIDERS: PCP Family Medicine; Visit Provider Obstetrics & Gynecology
PROC: (CPT 49320; principal; 2025-01-23 09:30)
DX: N73.6 Female pelvic peritoneal adhesions (postinfective) (principal); Z90.710 Acquired absence of both cervix and uterus
CPT/HCPCS: 58660; A9270; J1100; J1885; J2250; J2405; J2704; J3010; J7120